=== PATIENT | female | born 1940 | race Caucasian/White ===

== ENCOUNTER → 2016-09-28 | Outpatient (CLI) | payer MEDICARE, BC ==
[~2016-09-28] MED LIST: ACTONEL; ASPIRIN81 M2 PO; CALCIUM PO; CALCIUM1 TAB.CHEW PO; DILTIAZEM 24HR180 M1 PO; IRON1 TA1 PO; MEDROL PO; MULTI VITAMIN1 EACH PO; NEXIUM PO; PERCOCET5/325 PO; SPIRIVA18 MCG INH; VITAMIN D PO
[2016-09-28 08:26] LABS: BASOPHIL# 0.1 X10e3 (0-0.3); BASOPHIL% 1.5 % (0-2.5); EOSINOPHIL# 0.1 X10e3 (0-0.7); EOSINOPHIL% 2.5 % (0.0-7.0); HEMATOCRIT 41.2 % (35.0-45.0); HEMOGLOBIN 13.6 gm/dL (12.0-16.0); LYMPHOCYTE# 1.4 X10e3 (1.0-3.5); MEAN CELL VOLUME 97.2 FL (83-96); MEAN CORPUSCULAR HGB CONC 32.9 g/dL (30-36); MEAN PLATELET VOLUME 8.2 FL (6.5-11.5); MONOCYTE# 0.7 X10e3 (0-1.0); NEUTROPHIL# 3.3 X10e3 (1.5-7.1); PLATELET COUNT 264 X10e3 (140-420); RED BLOOD COUNT 4.24 X10e (3.90-5.30); RED CELL DISTRIBUTION WIDTH 12.4 % (11.0-15.5); WHITE BLOOD COUNT 5.5 X10e3 (4.0-10.5)
[2016-09-28 09:26] LABS: BUN/CREATININE RATIO 17.85; CALCIUM SERUM 9.2 mg/dL (8.4-10.2); CREATININE SERUM 1.4 mg/dL (0.6-1.4); GLOM FILT RATE Estimated 38.8 mL/min (>60)
[2016-09-28 09:35] LABS: DIFF IND NO
[2016-09-28 09:37] LABS: URINE APPEARANCE CLEAR; URINE BILIRUBIN NEG (NEG); URINE BLOOD NEG (NEG); URINE COLOR YELLOW; URINE GLUCOSE NEG (NORM); URINE KETONE NEG (NEG); URINE LEUKOCYTE ESTERASE NEG (NEG); URINE NITRATE NEG (NEG); URINE PH 6.5 (5-8); URINE PROTEIN NEG (NEG); URINE SPECIFIC GRAVITY <=1.005 (1.003-1.035); URINE UROBILINOGEN 0.2 MG/DL (NORM)
[2016-09-28 09:38] LABS: MICRO INDICATED? NO
== END | disposition home or self-care (01) ==
LOC: SLAB 08:09
DX: N18.3 Chronic kidney disease, stage 3 (moderate) (principal)
CPT/HCPCS: 36415; 80048; 81003; 85025

== ENCOUNTER → 2017-03-08 | Outpatient (CLI) | payer MEDICARE, BC ==
--- NOTE | ~2017-03-08 | MY30 ---
[facility] A Service of [facility] RADIOLOGY TEXT RESULTS PATIENT: OBINNA ANDREW LOCATION: [facility] : 38 UNIT #: [id number] AGE: [address]: Radha Acosta MD SEX: F ORDER DR: [id number] [place] [id number] MR#: [id number] Acc #: [id number] NAME: OBINNA ANDREW : 1940 SEX: F STUDY DATE/TIME: 03/08/2017 9:20 UNIT: [facility] ROOM: STUDY DESCRIPTION: MY SCREEN ERICA BILAT DIGITAL Attending Physician: Radha Acosta M.D. Referring Physician: Radha Acosta M.D. Ordering Physician: Radha Acosta M.D. Primary Care Physician: Radha Acosta M.D. MEDICAL IMAGING REPORT This report is preliminary unless electronic signature is present. EXAMINATION Bilateral digital screening mammogram with CAD. DATE 03/08/2017 HISTORY No personal or family history of breast cancer. Personal history of esophageal cancer. No current complaints. COMPARISON Bilateral screening mammogram 02/24/2016, 02/18/2015, 02/12/2014, 01/30/2013. FINDINGS CC and MLO views were obtained of each breast utilizing digital technique and reviewed with an FDA-approved CAD device. Heterogeneously dense fibroglandular tissue is present bilaterally. Fibronodular dominance within the right breast posterior third is a stable finding compared to 2012. No abnormal skin thickening or nipple retraction is identified. Benign lucent-centered calcification in the right breast is unchanged. Benign vascular calcifications are present bilaterally. IMPRESSION 1. BIRADS 2. Benign findings. Routine bilateral screening mammogram is recommended in one year. Patients over the age of 40 are entered into a reminder system with target due date for the next mammogram. A result letter will also be sent to the patient. [facility] A Service of [facility] RADIOLOGY TEXT RESULTS PATIENT: OBINNA ANDREW LOCATION: [facility] : 38 UNIT #: [id number] AGE: [address]: Radha Acosta MD SEX: F ORDER DR: BIRADS: 2 Benign findings. Dictated by... Cee Kennedy M.D. THIS IS AN ELECTRONICALLY VERIFIED REPORT Cee Kennedy M.D. at 03/13/2017 3:26 PM ALBERTINA/halina TD: 03/08/2017 18:08 JOB #: [id number] MEDICAL IMAGING REPORT Page 1 of 1
== END | disposition home or self-care (01) ==
LOC: SMAM 08:40
DX: Z12.31 Encounter for screening mammogram for malignant neoplasm of breast (principal); Z85.01 Personal history of malignant neoplasm of esophagus
CPT/HCPCS: G0202

== ENCOUNTER → 2017-03-29 | Outpatient (CLI) | payer MEDICARE, BC ==
[2017-03-29 08:37] LABS: BASOPHIL# 0.1 X10e3 (0-0.3); BASOPHIL% 0.9 % (0-2.5); EOSINOPHIL# 0.1 X10e3 (0-0.7); EOSINOPHIL% 0.9 % (0.0-7.0); HEMATOCRIT 42.9 % (35.0-45.0); HEMOGLOBIN 14.3 gm/dL (12.0-16.0); LYMPHOCYTE# 1.8 X10e3 (1.0-3.5); LYMPHOCYTE% 18.5 % (17.0-45.0); MEAN CELL VOLUME 96.8 FL (83-96); MEAN CORPUSCULAR HEMOGLOBIN 32.2 PG (28-34); MEAN CORPUSCULAR HGB CONC 33.3 g/dL (30-36); MEAN PLATELET VOLUME 8.2 FL (6.5-11.5); MONOCYTE# 0.8 X10e3 (0-1.0); MONOCYTE% 8.2 % (3.0-12.0); NEUTROPHIL# 6.9 X10e3 (1.5-7.1); NEUTROPHIL% 71.5 % (40-75); PLATELET COUNT 267 X10e3 (140-420); RED BLOOD COUNT 4.43 X10e (3.90-5.30); RED CELL DISTRIBUTION WIDTH 13.4 % (11.0-15.5); WHITE BLOOD COUNT 9.6 X10e3 (4.0-10.5)
[2017-03-29 08:50] LABS: DIFF IND NO
[2017-03-29 09:02] LABS: BUN/CREATININE RATIO 25.45; CALCIUM SERUM 9.6 mg/dL (8.4-10.2); CREATININE SERUM 1.1 mg/dL (0.6-1.4); GLOM FILT RATE Estimated 48.4 mL/min (>60); POTASSIUM 4.6 mmol/L (3.5-5.1)
[2017-03-29 09:39] LABS: URINE APPEARANCE CLEAR; URINE BILIRUBIN NEG (NEG); URINE BLOOD NEG (NEG); URINE COLOR YELLOW; URINE GLUCOSE NEG (NORM); URINE KETONE NEG (NEG); URINE LEUKOCYTE ESTERASE TRACE (NEG); URINE NITRATE NEG (NEG); URINE PROTEIN NEG (NEG); URINE UROBILINOGEN 0.2 MG/DL (NORM)
[2017-03-29 09:41] LABS: MICRO INDICATED? YES
[2017-03-29 09:48] LABS: URINE BACTERIA NEG (NEG); URINE RBC 0-2 /[HPF] (0-2); URINE SQUAMOUS EPITHELIAL CELL OCCAS /[HPF]; URINE WBC 0-2 /[HPF] (0-5)
== END | disposition home or self-care (01) ==
LOC: SLAB 08:13
PROVIDERS: Internal Medicine Nephrology
DX: N18.3 Chronic kidney disease, stage 3 (moderate) (principal)
CPT/HCPCS: 36415; 80048; 81003; 85025